=== PATIENT | female | born 1985 | race Caucasian/White ===

== ENCOUNTER 2016-11-24 18:45 | Emergency (ER) | payer OTHER ==
[~2016-11-24] VITALS: Ht 172.7 cm; Wt 73.9 kg
[~2016-11-24 18:45] MED LIST: BACTRIM,SEPT1 TABLET PO; FIORICET 50-301 EACH PO; MOBIC7.5 MG PO; MOTRIN600 MG PO; VICODIN,LORT1 TABLET PO; ZOFRAN4 MG PO
[2016-11-24] MEDS ORDERED: PAXIL (19:24)
[2016-11-24 20:25] VITALS: BP 126/80
[2016-11-24] MEDS ORDERED: ATARAX,VISTARIL25 MG PO (20:38)
== END 2016-11-24 20:47 | disposition home or self-care (01) ==
LOC: EME 18:45
DX: T43.225A Adverse effect of selective serotonin reuptake inhibitors, initial encounter (principal); F41.9 Anxiety disorder, unspecified
CPT/HCPCS: 93005; 99281; 99284; Q0177

== ENCOUNTER 2017-11-25 04:53 | Emergency (ER) | payer OTHER ==
[~2017-11-25] VITALS: Ht 172.7 cm; Wt 83.2 kg
[~2017-11-25 04:53] MED LIST changes: +ATARAX,VISTARIL25 MG PO; +PAXIL
[2017-11-25] MEDS ORDERED: FLONASE16 G1 BOTH NARES (06:30)
[2017-11-25 07:04] VITALS: BP 127/84
== END 2017-11-25 07:05 | disposition home or self-care (01) ==
LOC: EME 04:53
DX: J20.9 Acute bronchitis, unspecified (principal); J01.90 Acute sinusitis, unspecified; Z87.440 Personal history of urinary (tract) infections
CPT/HCPCS: 71046; 99281; 99284